=== PATIENT | female | born 1945 | race Hispanic/Latino ===

== ENCOUNTER → 2020-09-16 | Outpatient (CLI) | payer MEDICARE | END | disposition home or self-care (01) | LOC: RAH 14:36 | PROVIDERS: ATTEND Orthopaedic Surgery | DX: M17.11 Unilateral primary osteoarthritis, right knee (principal) | CPT/HCPCS: 73700 ==

== ENCOUNTER 2020-09-27 06:26 | Observation (INO) | payer MEDICARE ==
[2020-09-21 13:24] LABS: BASOPHILS % (AUTO) 0.3 % (0.0-5.0); EOSINOPHILS % (AUTO) 1.2 % (0.0-8.0); HEMATOCRIT 40.3 % (36-48); LYMPHOCYTES % (AUTO) 35.4 % (21.0-51.0); MEAN CORPUSCULAR HEMOGLOBIN 30.9 pg (27.0-33.0); MEAN CORPUSCULAR HGB CONC 31.5 g/dL (32.0-36.0); MEAN CORPUSCULAR VOLUME 98.1 fL (79-99); MONOCYTES % (AUTO) 6.9 % (3.0-13.0); PLATELET COUNT (AUTO) 170 K/uL (130-400); RED BLOOD CELL COUNT(AUTO) 4.11 MIL/uL (4.00-5.50); RED CELL DISTRIBUTION WIDTH 13.7 % (11.0-15.5); WHITE BLOOD COUNT (AUTO) 6.1 K/uL (4.8-10.8)
[2020-09-21 13:36] LABS: CREATININE 0.8 mg/dL (0.5-1.5); POTASSIUM 4.4 mmol/L (3.5-5.1)
[2020-09-21 13:51] LABS: INR 0.93 (0.85-1.15); PROTHROMBIN TIME 10.2 SEC (9.6-11.6)
[2020-09-21 13:52] LABS: PARTIAL THROMBOPLASTIN TIME 24.3 SEC (26.3-35.5)
[2020-09-23 10:56] VITALS: BP 177/72
[2020-09-27] VITALS (24 sets, daily range): BP systolic 99–160; BP diastolic 55–76
[~2020-09-27] VITALS: Ht 157.5 cm; Wt 77.2 kg
[~2020-09-27 06:26] MED LIST: AEC81 PO; CALC-190 PO; FLUT16H NASAL; GABA-529 PO; LEVO5TAB29 PO; MELO-106 PO; TAMO10TA PO; TIZA2CAP9 PO
[2020-09-27] MEDS ORDERED: LACTATED RINGERS 1000ML 1,000 ML IV ONE (07:12)
[2020-09-27] MEDS ORDERED: CEFAZOLIN SODIUM 1 GM VIAL ONE (07:15)
[2020-09-27] MEDS ORDERED: TRANEXAMIC ACID 1000MG/10ML ONE ×3 (07:20)
[2020-09-27] MEDS ORDERED: SUCCINYLCHOLINE CHLORIDE 20 MG/ML 10 ML VIAL ONE (07:37)
[2020-09-27] MEDS ORDERED: LIDOCAINE PF 100MG/5ML (2%) SYRINGE 5ML ONE (07:37)
[2020-09-27] MEDS ORDERED: MIDAZOLAM HCL 1 MG/ML 2ML VIAL ONE (07:38)
[2020-09-27] MEDS ORDERED: ROCURONIUM 10MG/1ML SYR 10 MG/ML ML ONE (07:38)
[2020-09-27] MEDS ORDERED: PROPOFOL 10 MG/ML 20ML VIAL IV ONE (07:38)
[2020-09-27] MEDS: LACTATED RINGERS 1000ML 1,000 ML IV SCH ×2 (07:53→11:55)
[2020-09-27] MEDS: CEFAZOLIN SODIUM 1 GM VIAL IVP SCH ×4 (08:00→21:39)
[2020-09-27] MEDS ORDERED: VANCOMYCIN 1G VIAL TP SCH (08:00)
[2020-09-27] MEDS ORDERED: DEXAMETHASONE SOD PHOSPHATE 10MG/ML 1ML VIAL ONE (08:14)
[2020-09-27] MEDS ORDERED: FENTANYL CITRATE PF 50 MCG/1 ML 2ML VIAL ONE (08:38)
[2020-09-27] MEDS ORDERED: GLYCOPYRROLATE 1 MG/5 ML SYRINGE ONE (09:30)
[2020-09-27] MEDS ORDERED: ONDANSETRON 4MG INJ ONE (09:30)
[2020-09-27] MEDS ORDERED: NEOSTIGMINE 5MG/5ML SYR IV ONE (09:30)
[2020-09-27] MEDS ORDERED: FLUTICASONE PROPIONATE 50MCG/SPRAY 16 GM BOTTLE EN SCH (10:00)
[2020-09-27] MEDS ORDERED: HYDROCODONE/ACETAMINOPHEN 5/325 MG TAB PO PRN (10:00)
[2020-09-27] MEDS ORDERED: ONDANSETRON 4MG INJ IVP PRN (10:00)
[2020-09-27] MEDS ORDERED: 0.9%NACL 1000ML 1,000 ML IV SCH (10:00)
[2020-09-27] MEDS ORDERED: TIZANIDINE HCL 2 MG TABLET PO SCH (10:00)
[2020-09-27] MEDS ORDERED: MELOXICAM 7.5 MG TABLET PO SCH (10:00)
[2020-09-27] MEDS: ACETAMINOPHEN 500 MG TABLET PO SCH ×2 (10:00→18:34)
[2020-09-27] MEDS ORDERED: MEPERIDINE-PF 25 MG/ML SYG ONE ×3 (10:01→10:44)
[2020-09-27] MEDS: TRAMADOL HCL 50 MG TABLET PO SCH ×2 (11:59→18:35)
[2020-09-27] MEDS: MORPHINE 4 MG SYG IVP PRN ×2 (12:07→21:41)
[2020-09-27] MEDS: OXYCODONE HCL 5 MG TAB PO PRN (14:38)
[2020-09-27] MEDS: FAMOTIDINE 20MG TAB PO SCH (20:18)
[2020-09-27] MEDS: ASPIRIN 81 MG EC TAB PO SCH (20:19)
[2020-09-27] MEDS ORDERED: [UNRECOGNIZED DRUG - REMARK] MISC SCH (20:30)
[2020-09-28] MEDS: TRAMADOL HCL 50 MG TABLET PO SCH ×3 (00:37→12:39)
[2020-09-28] MEDS: ACETAMINOPHEN 500 MG TABLET PO SCH ×2 (00:37→10:30)
[2020-09-28 03:54] VITALS: BP 99/51
[2020-09-28 04:06] LABS: HEMATOCRIT 31.2 % (36-48); MEAN CORPUSCULAR HEMOGLOBIN 30.2 pg (27.0-33.0); MEAN CORPUSCULAR HGB CONC 31.4 g/dL (32.0-36.0); MEAN CORPUSCULAR VOLUME 96.3 fL (79-99); RED BLOOD CELL COUNT(AUTO) 3.24 MIL/uL (4.00-5.50); RED CELL DISTRIBUTION WIDTH 13.2 % (11.0-15.5); WHITE BLOOD COUNT (AUTO) 13.2 K/uL (4.8-10.8)
[2020-09-28 04:22] LABS: CREATININE 0.8 mg/dL (0.5-1.5)
[2020-09-28] MEDS: OXYCODONE HCL 5 MG TAB PO PRN (07:53)
[2020-09-28] MEDS ORDERED: ROPIVICAINE 250MG+KETOROLAC 15MG+EPINEPHRINE 0.3+CLONIDINE 80 IV PRN ×5 (08:00)
[2020-09-28 08:08] VITALS: BP 100/72
[2020-09-28] MEDS ORDERED: GABAPENTIN 100 MG CAPSULE PO SCH (09:00)
[2020-09-28] MEDS ORDERED: POLYETHYLENE GLYCOL 3350 17 GM POWD.PACK PO SCH (09:00)
[2020-09-28] MEDS ORDERED: TAMOXIFEN CITRATE 10 MG TABLET PO SCH (09:00)
[2020-09-28] MEDS: FAMOTIDINE 20MG TAB PO SCH (10:30)
[2020-09-28] MEDS: ASPIRIN 81 MG EC TAB PO SCH (10:30)
[2020-09-28 11:15] VITALS: BP 96/54
[2020-09-30] MEDS ORDERED: BISACODYL 10 MG SUPP.RECT RC PRN (10:00)
== END 2020-09-28 17:10 | disposition home or self-care (01) ==
LOC: DAH 06:26 → 4AH 06:27
PROVIDERS: ADMIT Orthopaedic Surgery; ATTEND Orthopaedic Surgery
DX: M17.11 Unilateral primary osteoarthritis, right knee (principal); I10 Essential (primary) hypertension; E78.00 Pure hypercholesterolemia, unspecified; Z85.3 Personal history of malignant neoplasm of breast; Z79.899 Other long term (current) drug therapy; Z98.890 Other specified postprocedural states; Z98.891 History of uterine scar from previous surgery
CPT/HCPCS: 27447; 36415 ×3; 80048 ×2; 85025; 85027; 85610; 85730; 86850; 86900; 86901; 87635; 87641; 96374; 96375 ×2; 96376; 97039 ×3; 97116 ×2; 97161; 97530 ×2; A4215; A4216; A4221; A4222; A4223 ×2; A4649 ×5; A4663; A4930; A6260; C1776; C9803; G0378 ×30; G8978; G8979; G8980; G8981; G8982; G8983; J0330; J0690 ×3; J1100; J2001; J2175 ×3; J2250; J2270 ×2; J2405 ×2; J2704; J2710; J3010; J3370; J3490 ×4; J7030; J7120

== ENCOUNTER → 2022-01-17 | Outpatient (CLI) | payer MEDICARE ==
[~2022-01-17] MED LIST changes: +IOHEXOL 350 MG/ML 100ML INFUS..BTL IV ONE
== END | disposition home or self-care (01) ==
LOC: RAH 10:38
PROVIDERS: ATTEND Student in an Organized Health Care Education/Training Program
DX: I25.810 Atherosclerosis of coronary artery bypass graft(s) without angina pectoris (principal)
CPT/HCPCS: 75574; Q9967